=== PATIENT | male | born 1995 | race Caucasian/White ===

== ENCOUNTER 2018-02-08 12:38 | Emergency (ER) | payer OTHER ==
[2018-02-08 12:46] VITALS: BP 114/75
[2018-02-08] MEDS ORDERED: LIDOCAINE 4%/MENTHOL 1% PATCH TD ONE (13:20)
[2018-02-08] MEDS ORDERED: CYCLOBENZAPRINE 10 MG TAB PO ONE (13:20)
[2018-02-08] MEDS ORDERED: ACETAMINOPHEN 500 MG TAB PO ONE (13:20)
--- NOTE | 2018-02-08 13:28 | EDPHY ---
H & P Stated Complaint: Acute on Chronic Back Pain Time Seen by Provider: 02/08/18 13:06 HPI/ROS: CHIEF COMPLAINT: Low back pain HISTORY OF PRESENT ILLNESS: The patient presents to the ED with an acute exacerbation of chronic low back pain. The patient denies history of fall or trauma. The patient denies any bowel or bladder dysfunction. He denies any acute numbness or weakness. The patient denies history of fever or IV drug use. The patient denies significant past medical history. He has been taking Tylenol and aspirin [id number] without improvement of his symptoms. The patient reports a moderate pain in his bilateral paraspinal muscles. REVIEW OF SYSTEMS: A comprehensive 10 point review of systems is otherwise negative aside from elements mentioned in the history of present illness. Source: Patient Exam Limitations: No limitations - Personal History Current Tetanus Diphtheria and Acellular Pertussis (TDAP): Yes - Medical/Surgical History Hx Asthma: No Hx Chronic Respiratory Disease: No Hx Diabetes: No Hx Cardiac Disease: No Hx Renal Disease: No Hx Cirrhosis: No Hx Alcoholism: No Hx HIV/AIDS: No Hx Splenectomy or Spleen Trauma: No Other PMH: Chronic Back Pain, Orthopedic FXs - Social History Smoking Status: Current every day smoker - Physical Exam Exam: General Appearance: Alert, no distress Eyes: Pupils equal and round no pallor or injection ENT, Mouth: Mucous membranes moist Respiratory: There are no retractions, lungs are clear to auscultation Cardiovascular: Regular rate and rhythm Gastrointestinal: Abdomen is soft and nontender, no masses, bowel sounds normal Neurological: 5/5 strength noted throughout the bilateral lower extremities, sensation intact, normal reflexes, no anesthesia Skin: Warm and dry, no rashes Musculoskeletal: Tenderness to palpation in the bilateral lumbar paraspinal muscles Extremities: symmetrical, full range of motion Constitutional: Initial Vital Signs Temperature (C) 36.6 C 02/08/18 12:43 Heart Rate 94 02/08/18 12:43 Respiratory Rate 18 02/08/18 12:43 Blood Pressure 114/75 02/08/18 12:43 O2 Sat (%) 96 02/08/18 12:43 O2 Delivery Mode Room Air Allergies/Adverse Reactions: No Known Allergies Allergy (Unverified 02/08/18 12:43) Home Medications: Medication Instructions Recorded Cyclobenzaprine [Flexeril 10 MG 10 mg PO TID PRN #15 tab 02/08/18 (*)] Lidocaine [Lidoderm] 1 each TP AD PRN #15 adh..patch 02/08/18 Zyrtec 02/08/18 Medical Decision Making ED Course/Re-evaluation: The patient presents to the ED with an acute exacerbation of chronic low back pain. There are no red flag warnings. The patient is noted to be neurologically intact. He will be treated with Flexeril lidocaine patches. Departure - Departure Disposition: Home, Routine, Self-Care Clinical Impression: Lumbar strain Condition: Good Instructions: Low Back Strain (ED) Additional Instructions: 1. Take Ibuprofen or Motrin 600 mg by mouth three times a day. 2. Flexeril as needed for muscle relaxation. 3. Lidocaine patches as prescribed for next week 4. Follow up with a primary care provider when you return home for any ongoing symptoms. 5. Return to the ED for markedly worsening symptoms, incontinence, fever, numbness or weakness in your legs or other concerns Prescriptions: Cyclobenzaprine [Flexeril 10 MG (*)] 10 mg PO TID PRN #15 tab PRN Reason: Spasms Lidocaine [Lidoderm] 1 each TP AD PRN #15 adh..patch PRN Reason: Pain, Breakthrough
[2018-02-08] MEDS ORDERED: PATCH REMOVAL 1 EA PATCH TD SCH (21:00)
== END 2018-02-08 13:30 | disposition home or self-care (01) ==
DX: S39.012A Strain of muscle, fascia and tendon of lower back, initial encounter (principal); F17.200 Nicotine dependence, unspecified, uncomplicated; X58.XXXA Exposure to other specified factors, initial encounter